=== PATIENT | male | born 1965 ===

== ENCOUNTER 2024-09-28 12:12 | Outpatient (CLI) | payer MEDICAID, SELFPAY ==
[2024-09-28 22:56] LABS: PSA, Diagnostic 3.6 ng/mL (<=4.5)
== END 2024-09-28 12:13 | disposition home or self-care (01) ==
LOC: LBO 12:14
PROVIDERS: PCP Family Medicine; Visit Provider Nurse Practitioner Gerontology
DX: R97.20 Elevated prostate specific antigen [PSA] (principal)
CPT/HCPCS: 36415; 84153